=== PATIENT | male | born 1945 | race Caucasian/White ===

== ENCOUNTER 2020-05-13 11:28 | Emergency (ER) | payer OTHER ==
--- NOTE | 2020-05-13 12:55 | EDM.PDOC ---
ED HPI GENERAL MEDICAL PROBLEM - General Chief Complaint: Cardiovascular Problem Stated Complaint: TROUBLE WITH FAINTING Time Seen by Provider: 05/13/20 12:35 Source of Information: Reports: Patient History Limitations: Reports: No Limitations - History of Present Illness INITIAL COMMENTS - FREE TEXT/NARRATIVE: 74-year-old male had 3 episodes of syncope after standing out of his recliner chair at home over the past 3 days. He feels fine today but [facility] and they recommended he go to the emergency room. He otherwise feels fine, no chest pain, shortness of breath, nausea or vomiting or dark stools. He did have diarrhea for 2 days and needed to take some Imodium but that is better. No abdominal cramps or pain. Onset: Gradual (Symptoms have developed over the past 3 to 4 days) Associated Symptoms: Reports: Other (Diarrhea). Denies: Chest Pain, Cough, Diaphoresis, Fever/Chills, Loss of Appetite, Shortness of Breath Right Wrist Pain Score (Numeric/FACES): 3 - Related Data Allergies Allergy/AdvReac Type Severity Reaction Status Date / Time Penicillins Allergy Hives Verified 05/13/20 12:03 Home Meds: Home Meds ARIPiprazole [Abilify] 20 mg PO DAILY 05/13/20 [History] Amphetamine/Dextroamphetamine [Adderall XR] 20 mg PO TID 05/13/20 [History] Cetirizine [ZyrTEC] 10 mg PO DAILY 05/13/20 [History] Chlorthalidone 25 mg PO BEDTIME 05/13/20 [History] Losartan [Cozaar] 100 mg PO DAILY 05/13/20 [History] Sertraline [Zoloft] 100 mg PO DAILY 05/13/20 [History] Sildenafil [Viagra] 100 mg PO DAILY PRN 05/13/20 [History] Zolpidem Tartrate 10 mg PO BEDTIME 05/13/20 [History] traZODone 100 mg PO BEDTIME 05/13/20 [History] Past Medical History HEENT History: Reports: Impaired Vision Cardiovascular History: Reports: Hypertension Musculoskeletal History: Reports: Fracture Psychiatric History: Reports: Depression Endocrine/Metabolic History: Reports: Other (See Below) Other Endocrine/Metabolic History: pre-diabetic Oncologic (Cancer) History: Reports: Other (See Below) Other Oncologic History: "precancerous skin lesions" - Past Surgical History HEENT Surgical History: Reports: Eye Surgery GI Surgical History: Reports: Colonoscopy Musculoskeletal Surgical History: Reports: ORIF Social & Family History - Tobacco Use Tobacco Use Status *Q: Never Tobacco User - Caffeine Use Caffeine Use: Reports: Coffee - Recreational Drug Use Recreational Drug Use: No ED ROS GENERAL - Review of Systems Review Of Systems: See Below Constitutional: Denies: Fever, Chills HEENT: Reports: No Symptoms Respiratory: Denies: Shortness of Breath, Cough Cardiovascular: Denies: Chest Pain GI/Abdominal: Reports: Diarrhea. Denies: Abdominal Pain, Nausea, Vomiting Skin: Reports: Other (Sustained an abrasion on his right elbow from one of his falls). Denies: Pallor, Diaphoresis Neurological: Reports: Syncope ED EXAM, GENERAL - Physical Exam Exam: See Below Exam Limited By: No Limitations General Appearance: Alert, No Apparent Distress Eye Exam: Bilateral Eye: Normal Inspection Head: Atraumatic Neck: Supple, Non-Tender Respiratory/Chest: Lungs Clear Cardiovascular: Regular Rate, Rhythm. No: Tachycardia, Extra Beats GI/Abdominal: Non-Tender Extremities: Other (Superficial abrasion on the extensor surface of the right elbow, healing.) Neurological: Alert, Oriented Psychiatric: Normal Affect, Normal Mood Course - Vital Signs Last Recorded V/S: Last Vital Signs Temp 96.1 F L 05/13/20 12:16 Pulse 76 05/13/20 12:16 Resp 17 05/13/20 12:16 BP 145/86 H 05/13/20 12:16 Pulse Ox 97 05/13/20 12:16 Orthostatic Blood Pressure [ 111/62 Standing] Orthostatic Blood Pressure [ 115/68 Sitting] Orthostatic Blood Pressure [ 114/77 Supine] - Orders/Labs/Meds Labs: Laboratory Tests 05/13/20 05/13/20 Range/Units 13:03 13:03 WBC 8.0 (4.5-11.0) K/uL RBC 4.90 (4.30-5.90) M/uL Hgb 14.5 (12.0-15.0) g/dL Hct 45.4 (40.0-54.0) % MCV 93 (80-98) fL MCH 30 (27-31) pg MCHC 32 (32-36) % Plt Count 276 (150-400) K/uL Neut % (Auto) 62 (36-66) % Lymph % (Auto) 28 (24-44) % Gilmer % (Auto) 7 H (2-6) % Eos % (Auto) 3 (2-4) % Baso % (Auto) 1 (0-1) % Sodium 142 (140-148) mmol/L Potassium 3.8 (3.6-5.2) mmol/L Chloride 104 (100-108) mmol/L Carbon Dioxide 29 (21-32) mmol/L Anion Gap 9.5 (5.0-14.0) mmol/L BUN 31 H (7-18) mg/dL Creatinine 1.4 H (0.8-1.3) mg/dL Est Cr Clr Drug Dosing 52.35 mL/min Estimated GFR (MDRD) 50 L (>60) Glucose 106 (74-106) mg/dL Calcium 8.8 (8.5-10.1) mg/dL Total Bilirubin 0.4 (0.2-1.0) mg/dL AST 16 (15-37) U/L ALT 24 (12-78) U/L Alkaline Phosphatase 92 (46-116) U/L Total Protein 7.4 (6.4-8.2) g/dL Albumin 3.6 (3.4-5.0) g/dL Globulin 3.8 H (2.3-3.5) g/dL Albumin/Globulin Ratio 1.0 L (1.2-2.2) - Re-Assessments/Exams Free Text/Narrative Re-Assessment/Exam: 05/13/20 12:54 Orthostatic blood pressures were obtained and were stable, his pulse did in crease however from 72 to 92 lying to standing. He was asymptomatic. I suspect he was somewhat volume contracted from his diarrhea but is improving. CBC and CMP were obtained. 05/13/20 14:05 CBC and CMP were normal other than some mild volume contraction with mildly elevated creatinine BUN and slightly decreased GFR. Patient was encouraged to hydrate himself over the next several days and increase activity as tolerated, no medication changes. Departure - Departure Time of Disposition: 14:22 Disposition: Home, Self-Care 01 Clinical Impression: Dehydration, mild Syncope Qualifiers: Syncope type: unspecified Qualified Code(s): R55 - Syncope and collapse Instructions: Dehydration, Adult, [id number] Referrals: Maritza Moseley MD [Primary Care Provider] - Forms: ED Department Discharge Care Plan Goals: Drink lots of water the next couple of days to rehydrate, and increase activity as tolerated. Return anytime if worsening or concerns. No medication changes at this time. Sepsis Event Note (ED) - Evaluation Sepsis Screening Result: No Definite Risk - Focused Exam Vital Signs: Vital Signs Temp Pulse Resp BP Pulse Ox 05/13/20 12:16 96.1 F L 76 17 145/86 H 97 05/13/20 11:43 96.1 F L 90 17 145/86 H 97
== END 2020-05-13 14:22 | disposition home or self-care (01) ==
LOC: JP.ED 11:28
DX: R55 Syncope and collapse (principal); E86.0 Dehydration; I10 Essential (primary) hypertension; F32.9 Major depressive disorder, single episode, unspecified; Z88.0 Allergy status to penicillin; Z79.899 Other long term (current) drug therapy
CPT/HCPCS: 36415; 80053; 85025; 99284

== ENCOUNTER 2021-05-08 08:03 | Emergency (ER) | payer OTHER, MEDICARE ==
[2021-05-08 09:24] LABS: CORONAVIRUS COVID-19 NAA NEGATIVE (NEGATIVE)
--- NOTE | 2021-05-08 09:46 | EDM.PDOC ---
ED HPI GENERAL MEDICAL PROBLEM - General Chief Complaint: ENT Problem Stated Complaint: SHORTNESS OF BREATHE,COUGH,CHILLS Time Seen by Provider: 05/08/21 09:35 Source of Information: Reports: Patient, RN Notes Reviewed History Limitations: Reports: No Limitations - History of Present Illness INITIAL COMMENTS - FREE TEXT/NARRATIVE: 75-year-old gentleman presents emergency department day complaint of sinus congestion runny nose sore throat he has not had much for fevers no shortness of breath or chest pain, was vaccinated for Covid this fall is concerned that he may have Covid Throat Pain Score (Numeric/FACES): 6 - Related Data Allergies Allergy/AdvReac Type Severity Reaction Status Date / Time lisinopril Allergy Cough Verified 05/08/21 08:51 Penicillins Allergy Hives Verified 05/08/21 08:51 Home Meds: Home Meds ARIPiprazole [Abilify] 20 mg PO DAILY 05/13/20 [History] Amphetamine/Dextroamphetamine [Adderall XR] 20 mg PO TID 05/13/20 [History] Cetirizine [ZyrTEC] 10 mg PO DAILY 05/13/20 [History] Chlorthalidone 25 mg PO BEDTIME 05/13/20 [History] Losartan [Cozaar] 100 mg PO DAILY 05/13/20 [History] Sertraline [Zoloft] 100 mg PO DAILY 05/13/20 [History] Zolpidem Tartrate 10 mg PO BEDTIME 05/13/20 [History] traZODone 100 mg PO BEDTIME 05/13/20 [History] Fluticasone Propionate [Flonase] 16 gm NS ASDIRECTED 05/08/21 [History] Past Medical History HEENT History: Reports: Impaired Vision Cardiovascular History: Reports: Hypertension Musculoskeletal History: Reports: Fracture Psychiatric History: Reports: Depression Endocrine/Metabolic History: Reports: Other (See Below) Other Endocrine/Metabolic History: pre-diabetic Oncologic (Cancer) History: Reports: Other (See Below) Other Oncologic History: "precancerous skin lesions" - Infectious Disease History Infectious Disease History: Reports: Chicken Pox - Past Surgical History HEENT Surgical History: Reports: Eye Surgery GI Surgical History: Reports: Colonoscopy Musculoskeletal Surgical History: Reports: ORIF Social & Family History - Tobacco Use Tobacco Use Status *Q: Never Tobacco User - Caffeine Use Caffeine Use: Reports: Coffee - Recreational Drug Use Recreational Drug Use: No ED ROS ENT - Review of Systems Review Of Systems: See Below Constitutional: Denies: Fever HEENT: Reports: Rhinitis, Sinus Problem Respiratory: Reports: No Symptoms Cardiovascular: Reports: No Symptoms ED EXAM, ENT - Physical Exam Exam: See Below Exam Limited By: No Limitations General Appearance: Alert, WD/WN, No Apparent Distress Respiratory/Chest: No Respiratory Distress, Lungs Clear, Normal Breath Sounds, No Accessory Muscle Use, Chest Non-Tender Cardiovascular: Regular Rate, Rhythm, No Murmur Course - Vital Signs Last Recorded V/S: Last Vital Signs Temp 97.3 F 05/08/21 08:44 Pulse 65 05/08/21 08:44 Resp 18 05/08/21 08:44 BP 156/73 H 05/08/21 08:44 Pulse Ox 96 05/08/21 08:44 - Orders/Labs/Meds Orders: Active Orders 24 hr Category Date Time Status Isolation [COMM] Stat Oth 05/08/21 08:08 Ordered Labs: Laboratory Tests 05/08/21 Range/Units 08:38 Influenza Type A RNA Negative (NEGATIVE) RSV RNA (INAAT) Positive H (NEGATIVE) Influenza Type B RNA Negative (NEGATIVE) SARS-CoV-2 RNA (GENO) Negative (NEGATIVE) Departure - Departure Time of Disposition: 09:44 Disposition: Home, Self-Care 01 Condition: Fair Clinical Impression: RSV infection - Discharge Information Instructions: Respiratory Syncytial Virus Test Referrals: Maritza Moseley MD [Primary Care Provider] - Forms: ED Department Discharge Additional Instructions: Recommend symptomatic care Tylenol or Motrin for fevers and body aches, try pseudoephedrine or another decongestant such as Claritin-D or Zyrtec-D the D is consistent with decongestant, all these medications are [id number]. Please followup with your primary care provider in 3-5 days if not better, please call return to the emergency department with worsening of symptoms. Sepsis Event Note (ED) - Focused Exam Vital Signs: Vital Signs Temp Pulse Resp BP Pulse Ox 05/08/21 08:44 97.3 F 65 18 156/73 H 96 - My Orders Last 24 Hours: My Active Orders 05/08/21 08:08 Isolation [COMM] Stat - Assessment/Plan Last 24 Hours: My Active Orders 05/08/21 08:08 Isolation [COMM] Stat Plan: Assessment Acuity = acute Site and laterality = viral syndrome Etiology = RSV Manifestations = rhinorrhea Location of injury = Home Lab values = Covid negative influenza A negative influenza B negative RSV positive Plan Symptomatic care at this time recommend decongestants follow-up primary care 3 to 5 days if not better This note was dictated using [employer] voice recognition software please call with any questions on syntax or grammar.
== END 2021-05-08 10:37 | disposition home or self-care (01) ==
LOC: JP.ED 08:03
DX: J34.89 Other specified disorders of nose and nasal sinuses (principal); B97.4 Respiratory syncytial virus as the cause of diseases classified elsewhere; I10 Essential (primary) hypertension; Z88.0 Allergy status to penicillin; Z88.8 Allergy status to other drugs, medicaments and biological substances; Z79.899 Other long term (current) drug therapy; Z20.822 Contact with and (suspected) exposure to COVID-19
CPT/HCPCS: 0241U; 99283

== ENCOUNTER 2021-08-29 09:52 | Emergency (ER) | payer OTHER, BC ==
[2021-08-29] MEDS ORDERED: HYDROmorphone 0.5 MG/0.5 ML Syringe IVPUSH ONE ×3 (10:23→13:26)
[2021-08-29 12:25] LABS: CORONAVIRUS COVID-19 NAA NEGATIVE (NEGATIVE)
== END 2021-08-29 13:54 | disposition other institution (70) ==
LOC: JP.ED 09:52
DX: S72.002A Fracture of unspecified part of neck of left femur, initial encounter for closed fracture (principal); I10 Essential (primary) hypertension; Z79.899 Other long term (current) drug therapy; Z88.0 Allergy status to penicillin; Z88.8 Allergy status to other drugs, medicaments and biological substances; W00.0XXA Fall on same level due to ice and snow, initial encounter
CPT/HCPCS: 0241U; 73502-26-LT; 73502-LT; 96374; 96376; 99282; 99285-25; J1170

== ENCOUNTER 2023-02-05 17:38 | Emergency (ER) | payer OTHER, MEDICARE ==
[2023-02-05 18:38] LABS: BASOPHILS ABSOLUTE AUTO 0.06 K/uL (0.00-0.10); BASOPHILS PERCENT AUTO 0.7 % (0.1-1.3); EOSINOPHILS ABSOLUTE AUTO 0.35 K/uL (0.00-0.40); HEMATOCRIT 43.8 % (38.4-49.7); HEMOGLOBIN 14.4 g/dL (12.9-16.9); IMMATURE GRAN PERCENT AUTO 0.2 % (0.0-0.7); LYMPHOCYTES ABSOLUTE AUTO 1.89 K/uL (0.8-3.3); LYMPHOCYTES PERCENT AUTO 21.4 % (11.4-47.7); MEAN CORPUSCULAR HEMOGLOBIN 30.4 pg (31.6-35.5); MEAN CORPUSCULAR HGB CONC 32.9 g/dL (31.6-35.5); MEAN CORPUSCULAR VOLUME 92.6 fL (81.4-99.0); MONOCYTES ABSOLUTE AUTO 0.62 K/uL (0.20-0.90); NEUTROPHILS PERCENT AUTO 66.7 % (40.0-78.1); PLATELET COUNT,PLT 248 K/uL (130-375); RED BLOOD CELL COUNT 4.73 M/uL (4.14-5.76); WHITE BLOOD CELL COUNT,WBC 8.8 K/uL (3.2-11.0)
[2023-02-05 18:39] LABS: IMMATURE GRAN ABSOLUTE AUTO 0.02 K/uL (0.00-0.23)
[2023-02-05 19:01] LABS: ANION GAP 6.9 mmol/L (5.0-14.0); CREATININE 1.3 mg/dL (0.8-1.3); EST CRCL DRUG DOSING (CG) 53.89 mL/min; TROPONIN I HIGH SENSITIVITY 11.9 pg/mL (<=60.3)
== END 2023-02-05 19:29 | disposition home or self-care (01) ==
LOC: JP.ED 17:38
DX: M79.2 Neuralgia and neuritis, unspecified (principal); I10 Essential (primary) hypertension; E78.00 Pure hypercholesterolemia, unspecified; Z87.891 Personal history of nicotine dependence; Z88.0 Allergy status to penicillin; Z88.8 Allergy status to other drugs, medicaments and biological substances; Z79.899 Other long term (current) drug therapy
CPT/HCPCS: 36415; 80048; 84484; 85025; 93005; 93010; 99284

== ENCOUNTER 2023-07-08 15:00 | Emergency (ER) | payer MEDICARE, OTHER ==
[2023-07-08 16:14] LABS: APPEARANCE,URINE CLEAR (CLEAR); BILIRUBIN,URINE NEGATIVE (NEGATIVE); COLOR,URINE YELLOW (YELLOW); GLUCOSE,URINE NEGATIVE (NEGATIVE); KETONES,URINE NEGATIVE (NEGATIVE); LEUKOCYTE ESTERASE,URINE NEGATIVE (NEGATIVE); NITRITE,URINE NEGATIVE (NEGATIVE); OCCULT BLOOD,URINE NEGATIVE (NEGATIVE); PH,URINE 5.5 (5.0-8.0); PROTEIN,URINE TRACE mg/dL (NEGATIVE); UROBILINOGEN,URINE 0.2 EU/dL (0.2-1.0)
[2023-07-08 16:21] LABS: RBC,URINE 0-5 (0-5)
[2023-07-08 16:22] LABS: AMORPHOUS SEDIMENT,URINE NOT SEEN; BACTERIA,URINE FEW; EPITHELIAL CELLS,URINE RARE; MUCUS,URINE FEW; WBC,URINE 0-5 (0-5)
[2023-07-08 16:29] LABS: ALANINE AMINOTRANSFERASE,ALT 20 U/L (12-78); ALBUMIN 3.6 g/dL (3.4-5.0); ALKALINE PHOSPHATASE 96 U/L (46-116); ANION GAP 8.8 mmol/L (5.0-14.0); ASPARTATE AMNIOTRANSFERASE,AST 17 U/L (15-37); BILIRUBIN TOTAL 0.3 mg/dL (0.2-1.0); BLOOD UREA NITROGEN,BUN 21 mg/dL (7-18); CALCIUM 8.5 mg/dL (8.5-10.1); CARBON DIOXIDE,CO2 26 mmol/L (21-32); CHLORIDE,CL 106 mmol/L (100-108); CREATININE 1.2 mg/dL (0.8-1.3); EST CRCL DRUG DOSING (CG) 58.38 mL/min; ESTIMATED GFR 63 mL/min (>60); GLUCOSE RANDOM 96 mg/dL (74-106); POTASSIUM,K 3.7 mmol/L (3.6-5.2); PROTEIN TOTAL,TP 7.2 g/dL (6.4-8.2); SODIUM,NA 141 mmol/L (140-148)
== END 2023-07-08 17:16 | disposition home or self-care (01) ==
LOC: JP.ED 15:00
DX: S39.011A Strain of muscle, fascia and tendon of abdomen, initial encounter (principal); N18.2 Chronic kidney disease, stage 2 (mild); I10 Essential (primary) hypertension; E78.00 Pure hypercholesterolemia, unspecified; Z79.899 Other long term (current) drug therapy; Z88.0 Allergy status to penicillin
CPT/HCPCS: 36415; 80053; 81001; 99284

== ENCOUNTER 2024-03-29 10:50 | Emergency (ER) | payer OTHER ==
[2024-03-29 12:08] LABS: BASOPHILS ABSOLUTE AUTO 0.06 K/uL (0.00-0.10); BASOPHILS PERCENT AUTO 0.8 % (0.1-1.3); EOSINOPHILS ABSOLUTE AUTO 0.16 K/uL (0.00-0.40); EOSINOPHILS PERCENT AUTO 2.1 % (0.0-5.4); HEMATOCRIT 39.3 % (38.4-49.7); HEMOGLOBIN 13.4 g/dL (12.9-16.9); IMMATURE GRAN ABSOLUTE AUTO 0.04 K/uL (0.00-0.23); IMMATURE GRAN PERCENT AUTO 0.5 % (0.0-0.7); LYMPHOCYTES ABSOLUTE AUTO 1.78 K/uL (0.8-3.3); LYMPHOCYTES PERCENT AUTO 23.8 % (11.4-47.7); MEAN CORPUSCULAR HEMOGLOBIN 30.9 pg (31.6-35.5); MEAN CORPUSCULAR HGB CONC 34.1 g/dL (31.6-35.5); MEAN CORPUSCULAR VOLUME 90.6 fL (81.4-99.0); MONOCYTES ABSOLUTE AUTO 0.54 K/uL (0.20-0.90); MONOCYTES PERCENT AUTO 7.2 % (3.3-12.6); NEUTROPHILS PERCENT AUTO 65.6 % (40.0-78.1); PLATELET COUNT,PLT 252 K/uL (130-375); RED BLOOD CELL COUNT 4.34 M/uL (4.14-5.76); WHITE BLOOD CELL COUNT,WBC 7.5 K/uL (3.2-11.0)
[2024-03-29 12:12] LABS: BICARBONATE,VENOUS 25.4 mmol/L; CARBOXYHEMOGLOBIN 4.1 % (0.0-1.6); O2 SATURATION VENOUS 85.4; PCO2 VENOUS 37.6 mm/Hg; PH,VENOUS 7.445 (7.350-7.450); PO2 VENOUS 45.6 mm/Hg; TOTAL HEMOGLOBIN 14.1 g/dL (13.5-18.0)
[2024-03-29 12:43] LABS: A/G RATIO 0.9 (1.2-2.2); ALANINE AMINOTRANSFERASE,ALT 12 U/L (12-78); ALBUMIN 3.4 g/dL (3.4-5.0); ALKALINE PHOSPHATASE 93 U/L (46-116); ANION GAP 5.6 mmol/L (5.0-14.0); ASPARTATE AMNIOTRANSFERASE,AST 14 U/L (15-37); BILIRUBIN TOTAL 0.5 mg/dL (0.2-1.0); BLOOD UREA NITROGEN,BUN 22 mg/dL (7-18); CALCIUM 8.9 mg/dL (8.5-10.1); CARBON DIOXIDE,CO2 29 mmol/L (21-32); CHLORIDE,CL 107 mmol/L (100-108); CREATININE 1.3 mg/dL (0.8-1.3); EST CRCL DRUG DOSING (CG) 53.06 mL/min; ESTIMATED GFR 57 mL/min (>60); GLUCOSE RANDOM 102 mg/dL (74-106); POTASSIUM,K 3.9 mmol/L (3.6-5.2); PRO B-TYPE NATRIUR PEPT,BNPPRO 851 pg/mL (5-450); SODIUM,NA 142 mmol/L (140-148)
[2024-03-29] MEDS: Sodium Chloride 0.9% 1,000 ML IV ONE (13:20)
[2024-03-29 14:00] LABS: INFLUENZA A NAA NEGATIVE (NEGATIVE); INFLUENZA B NAA NEGATIVE (NEGATIVE); RESPIRATORY SYNCYTIAL VIR NAA NEGATIVE (NEGATIVE)
[2024-03-29 14:04] LABS: CORONAVIRUS COVID-19 NAA POSITIVE (NEGATIVE)
[2024-03-29] MEDS: Iopamidol 755 Mg/ML 100 ML Bottle IV ONE (14:32)
[2024-03-29] MEDS: Sodium Chloride 0.9% 100 ML IV SCH (14:32)
[2024-03-29 15:17] LABS: APPEARANCE,URINE CLEAR (CLEAR); BILIRUBIN,URINE NEGATIVE (NEGATIVE); COLOR,URINE YELLOW (YELLOW); GLUCOSE,URINE NEGATIVE (NEGATIVE); KETONES,URINE NEGATIVE (NEGATIVE); LEUKOCYTE ESTERASE,URINE NEGATIVE (NEGATIVE); NITRITE,URINE NEGATIVE (NEGATIVE); OCCULT BLOOD,URINE TRACE-INTACT (NEGATIVE); PH,URINE 6.5 (5.0-8.0); PROTEIN,URINE NEGATIVE (NEGATIVE); UROBILINOGEN,URINE 0.2 EU/dL (0.2-1.0)
[2024-03-29 15:23] LABS: AMORPHOUS SEDIMENT,URINE NOT SEEN; BACTERIA,URINE NOT SEEN; EPITHELIAL CELLS,URINE RARE; MUCUS,URINE RARE; RBC,URINE 0-5 (0-5); WBC,URINE 0-5 (0-5)
== END 2024-03-29 16:19 | disposition home or self-care (01) ==
LOC: JP.ED 10:50
DX: U07.1 COVID-19 (principal); R91.1 Solitary pulmonary nodule; E78.00 Pure hypercholesterolemia, unspecified; I12.9 Hypertensive chronic kidney disease with stage 1 through stage 4 chronic kidney disease, or unspecified chronic kidney disease; N18.30 Chronic kidney disease, stage 3 unspecified; Z86.16 Personal history of COVID-19; Z87.891 Personal history of nicotine dependence; Z79.899 Other long term (current) drug therapy; Z88.0 Allergy status to penicillin; Z88.8 Allergy status to other drugs, medicaments and biological substances
CPT/HCPCS: 0241U; 36415; 71046; 71275; 80053; 81001; 82803; 83605; 83880; 84145; 84484; 85025; 85379; 93005; 93010; 96360; 96361; 99284; 99285; J3490; J7030; Q9967